=== PATIENT | female | born 1935 | race Caucasian/White ===

== ENCOUNTER 2016-04-16 08:24 | Day surgery (SDC) | payer OTHER, BC ==
[~2016-04-16] VITALS: Ht 167.6 cm; Wt 77.1 kg
[~2016-04-16 08:24] MED LIST: ACIDOPHILUS LA1 EAC1 PO; AMLODIPINE BESY10 MG PO; AMLODIPINE BESYL5 MG PO; BENZONATATE100 MG PO; CINNABETIC1 CAPSUL1 PO; CINNAMON500 MG PO; CLOPIDOGREL75 MG PO; Cinnamon Bark PO; ECOTRIN325 MG PO; EFFEXOR XR75 MG PO; Ecotrin PO; FISH OIL 1,0001 EAC7 PO; FISH OIL 1,4001 EACH PO; FISH OIL300 MG PO; GABAPENTIN100 MG PO; HYZAAR 100-21 TABLET PO; Hyzaar 100-25 PO; INDERAL20 MG PO; LEVOFLOXACIN750 MG PO; LO-DOSE ASPIRIN81 M2 PO; LORCET 5-325 M1 EACH PO; NAPROSYN250 MG PO; NORVASC5 MG PO; Norvasc PO; ONE DAILY MULT1 EAC1 PO; PREVACID30 MG PO; PROBIOTIC & AC1 EACH PO; PROBIOTIC1 EAC2 PO; PROBIOTIC1 EAC6 PO; PROBIOTIC1 EACH PO; PROTONIX40 MG PO; Pravachol PO; Protonix PO; TAMIFLU30 MG PO; TYLENOL WITH C1 EACH PO; VENLAFAXINE HCL75 M3 PO; VITAMIN B-COMP1 EAC2 PO; VYTORIN 10/21 TABLET PO; VYTORIN 10/41 TABLET PO; Zetia PO
== END 2016-04-16 10:39 | disposition home or self-care (01) ==
LOC: PAIN 08:24 → SDC 09:00 → PAIN 10:39
PROC: 01513ZZ Destruction of Cervical Nerve, Percutaneous Approach (ICD-10-PCS; principal; 2016-04-16)
DX: M47.892 Other spondylosis, cervical region (principal); M54.12 Radiculopathy, cervical region; E78.5 Hyperlipidemia, unspecified; I10 Essential (primary) hypertension; K21.9 Gastro-esophageal reflux disease without esophagitis; F41.1 Generalized anxiety disorder; E11.40 Type 2 diabetes mellitus with diabetic neuropathy, unspecified
CPT/HCPCS: J1030; J3010; S0020

== ENCOUNTER 2016-11-25 20:12 | Inpatient (IN) | payer OTHER, BC ==
[~2016-11-25] VITALS: Ht 162.6 cm; Wt 84.8 kg
[2016-11-25 20:40] LABS: HEMATOCRIT 42.8 % (36.0-46.0); MCH 29.1 PG (29.0-34.0); MCHC 33.4 G/DL (30.0-36.0); MEAN PLAT.VOLUME 10.5 uM^3 (9.5-12.4); PLATELET COUNT 205 K/uL (156-360); RBC DIS.WIDTH-CV 12.5 % (11.8-14.6); RBC DIS.WIDTH-SD 39.8 % (39-53); RED BLOOD COUNT 4.92 M/uL (3.80-5.20); WHITE BLOOD COUNT 8.6 K/uL (4.1-10.2)
[2016-11-25 20:49] LABS: AMYLASE 61 IU/L (1-118); CHLORIDE 100 mEq/L (99-109); INTER. NORMALIZED RATIO 0.9; POTASSIUM 3.6 mEq/L (3.7-5.4); SODIUM 140 mEq/L (136-147)
[2016-11-25 20:50] LABS: GLUCOSE 115 mg/dL (70-99)
[2016-11-25 20:51] LABS: PTT 28.4 SEC (25-37)
[2016-11-25 20:52] LABS: ANION GAP 14 MEQ/L (2-14)
[2016-11-25 20:53] LABS: PROTHROMBIN TIME 9.4 SEC (10.2-12.9)
[2016-11-25 20:54] LABS: GFR ESTIMATE (CALCULATED) > 59 mL/min/
[2016-11-25 20:55] LABS: UREA NITROGEN (BUN) 18 mg/dL (9-23)
[2016-11-25 20:57] LABS: LIPASE 17 U/L (1.0-51.0)
[2016-11-25 21:01] LABS: TROP-I INTERPRETATION NEGATIVE; TROPONIN-I 0.01 ng/mL (0.0-0.30)
[2016-11-25 23:48] LABS: HDL CHOLESTEROL 45 MG/DL (Desirable>=50); LDL CHOLESTEROL 85 mg/dL (Desirable<100); NON-HDL CHOLESTEROL 127 mg/dL (Desirable<160); SAMPLE HEMOLYSIS CHECK 0; SAMPLE ICTERIC CHECK 0; SAMPLE LIPEMIA CHECK 0; TOTAL CHOLESTEROL 172 mg/dL (Desirable<200); TRIGLYCERIDES 210 MG/DL (Normal: <150)
[2016-11-25] MEDS ORDERED: TYLENOL WITH C1 EACH PO (23:50)
[2016-11-26 00:44] VITALS: BP 166/74
[2016-11-26 06:16] LABS: HEMATOCRIT 35.1 % (36.0-46.0); MCH 29.1 PG (29.0-34.0); MCHC 33.3 G/DL (30.0-36.0); MCV 87.3 FL (83-99); RBC DIS.WIDTH-CV 12.4 % (11.8-14.6); RED BLOOD COUNT 4.02 M/uL (3.80-5.20); WHITE BLOOD COUNT 7.5 K/uL (4.1-10.2)
[2016-11-26 06:17] LABS: MEAN PLAT.VOLUME 10.8 uM^3 (9.5-12.4); PLATELET COUNT 164 K/uL (156-360)
[2016-11-26 06:38] LABS: ALKALINE PHOSPHATASE 52 IU/L (3-129); ANION GAP 7 MEQ/L (2-14); CHLORIDE 106 MEQ/L (99-109); GFR ESTIMATE (CALCULATED) > 59 mL/min/; GLUCOSE 94 mg/dL (70-99); POTASSIUM 3.8 MEQ/L (3.7-5.4); SAMPLE HEMOLYSIS CHECK 0; SAMPLE ICTERIC CHECK 0; SAMPLE LIPEMIA CHECK 0; SODIUM 143 MEQ/L (136-147); TOTAL BILIRUBIN 0.6 MG/DL (0.0-1.0); UREA NITROGEN (BUN) 15 mg/dL (9-23)
[2016-11-26 07:09] LABS: Estimated Average Glucose 120 mg/dL (70-123); HEMOGLOBIN A1c (GLYCOHEMOGLOB) 5.8 % HGB (Below 5.7)
[2016-11-26 07:50] VITALS: BP 136/65
[2016-11-26 11:21] VITALS: BP 133/62
[2016-11-26 15:15] VITALS: BP 149/70
[2016-11-26 20:01] VITALS: BP 140/68
[2016-11-27 00:02] VITALS: BP 140/67
[2016-11-27 03:35] VITALS: BP 124/58
[2016-11-27 06:54] LABS: BASOPHIL COUNT 0.1 K/uL (0-0.1); EOSINOPHIL (%) 5.3 % (0-5); EOSINOPHIL COUNT 0.3 K/uL (0-0.3); HEMATOCRIT 36.9 % (36.0-46.0); IMMATURE GRANULOCYTE (%) 0.2 % (0.0-0.7); INSTRUMENT ABS NEUTROPHIL CT 2.7 K/uL; LYMPHOCYTE COUNT 1.9 K/uL (1.0-2.8); MCH 29.5 PG (29.0-34.0); MCHC 33.6 G/DL (30.0-36.0); MCV 87.9 FL (83-99); MEAN PLAT.VOLUME 10.5 uM^3 (9.5-12.4); MONOCYTE (%) 14.3 % (3-12); MONOCYTE COUNT 0.8 K/uL (0-0.8); NEUTROPHIL (%) 47.1 % (45-76); NEUTROPHIL COUNT 2.7 K/uL (1.8-6.4); PLATELET COUNT 170 K/uL (156-360); RBC DIS.WIDTH-CV 12.5 % (11.8-14.6); RBC DIS.WIDTH-SD 40.2 % (39-53); WHITE BLOOD COUNT 5.8 K/uL (4.1-10.2)
[2016-11-27 07:21] LABS: ANION GAP 7 MEQ/L (2-14); CHLORIDE 104 MEQ/L (99-109); GFR ESTIMATE (CALCULATED) > 59 mL/min/; GLUCOSE 99 mg/dL (70-99); POTASSIUM 3.7 MEQ/L (3.7-5.4); SAMPLE HEMOLYSIS CHECK 0; SAMPLE ICTERIC CHECK 0; SAMPLE LIPEMIA CHECK 0; SODIUM 143 MEQ/L (136-147); UREA NITROGEN (BUN) 13 mg/dL (9-23)
[2016-11-27 07:47] VITALS: BP 124/62
[2016-11-27 11:44] VITALS: BP 150/59
[2016-11-27] MEDS ORDERED: CLOPIDOGREL75 MG PO (13:19)
[2016-11-27] MEDS ORDERED: EZETIMIBE10 MG PO (13:19)
[2016-11-27] MEDS ORDERED: NAPROSYN250 MG PO (13:20)
[2016-11-27] MEDS ORDERED: PRAVASTATIN SOD40 MG PO (13:20)
[2016-11-27] MEDS ORDERED: GABAPENTIN100 MG PO (13:21)
== END 2016-11-27 15:09 | disposition home or self-care (01) | DRG 66 ==
LOC: EME 20:12 → EDOF 22:10 → 5SOUTH 22:10 → ENRESERV 22:12 → 5SOUTH 11-26 00:28 → ENPENDDIS 11-27 → 5SOUTH 11-27 15:09
PROVIDERS: Internal Medicine
DX: I63.9 Cerebral infarction, unspecified (principal); E87.6 Hypokalemia; E78.00 Pure hypercholesterolemia, unspecified; I10 Essential (primary) hypertension; I25.10 Atherosclerotic heart disease of native coronary artery without angina pectoris; E78.5 Hyperlipidemia, unspecified; F32.9 Major depressive disorder, single episode, unspecified; G43.909 Migraine, unspecified, not intractable, without status migrainosus; I25.2 Old myocardial infarction; K21.9 Gastro-esophageal reflux disease without esophagitis; R29.702 NIHSS score 2; M48.02 Spinal stenosis, cervical region; R29.810 Facial weakness; E66.9 Obesity, unspecified; Z68.32 Body mass index [BMI] 32.0-32.9, adult; M50.30 Other cervical disc degeneration, unspecified cervical region; Z95.1 Presence of aortocoronary bypass graft; Z95.2 Presence of prosthetic heart valve; R47.1 Dysarthria and anarthria
CPT/HCPCS: 70450; 70496; 70498; 70551; 71010; 80048; 80053; 80061; 82150; 83036; 83690; 84484; 85025; 85027; 85610; 85730; 92610 GN; 93005; 93306; 99281; 99285; J1644; J3480; S0028

== ENCOUNTER 2017-04-28 07:54 | Observation (INO) | payer OTHER, BC ==
[~2017-04-28] VITALS: Ht 170.2 cm; Wt 77.7 kg
[~2017-04-28 07:54] MED LIST changes: +EZETIMIBE10 MG PO; +PRAVASTATIN SOD40 MG PO
[2017-04-28 08:59] LABS: BASOPHIL (%) 0.9 % (0-1); BASOPHIL COUNT 0.1 K/uL (0-0.1); EOSINOPHIL (%) 5.4 % (0-5); EOSINOPHIL COUNT 0.4 K/uL (0-0.3); HEMATOCRIT 39.7 % (36.0-46.0); HEMOGLOBIN 13.4 G/DL (11.9-15.5); IMMATURE GRANULOCYTE (%) 0.3 % (0.0-0.7); LYMPHOCYTE (%) 24.2 % (15-42); LYMPHOCYTE COUNT 1.6 K/uL (1.0-2.8); MCH 29.5 PG (29.0-34.0); MCHC 33.8 G/DL (30.0-36.0); MCV 87.4 FL (83-99); MONOCYTE (%) 13.1 % (3-12); MONOCYTE COUNT 0.9 K/uL (0-0.8); NEUTROPHIL (%) 56.1 % (45-76); NEUTROPHIL COUNT 3.8 K/uL (1.8-6.4); PLATELET COUNT 213 K/uL (156-360); RBC DIS.WIDTH-CV 12.2 % (11.8-14.6); RBC DIS.WIDTH-SD 39.1 % (39-53); RED BLOOD COUNT 4.54 M/uL (3.80-5.20); WHITE BLOOD COUNT 6.7 K/uL (4.1-10.2)
[2017-04-28 09:04] LABS: INTER. NORMALIZED RATIO 0.9
[2017-04-28 09:19] LABS: CHLORIDE 104 mEq/L (99-109); POTASSIUM 3.7 mEq/L (3.7-5.4); SODIUM 142 mEq/L (136-147)
[2017-04-28 09:21] LABS: GLUCOSE 106 mg/dL (70-99)
[2017-04-28 09:25] LABS: CREATININE 0.8 mg/dL (0.6-1.3); GFR ESTIMATE (CALCULATED) > 59 mL/min/; UREA NITROGEN (BUN) 18 mg/dL (9-23)
[2017-04-28 09:33] LABS: TROP-I INTERPRETATION NEGATIVE; TROPONIN-I < 0.01 ng/mL (0.0-0.30)
[2017-04-28 13:07] LABS: HDL CHOLESTEROL 45 MG/DL (Desirable>=50); LDL CHOLESTEROL 100 mg/dL (Desirable<100); NON-HDL CHOLESTEROL 123 mg/dL (Desirable<160); TOTAL CHOLESTEROL 168 mg/dL (Desirable<200); TRIGLYCERIDES 115 MG/DL (Normal: <150)
[2017-04-28 13:27] LABS: HEMOGLOBIN A1c (GLYCOHEMOGLOB) 5.8 % (Below 5.7)
[2017-04-28 20:12] VITALS: BP 124/77
[2017-04-28 23:37] VITALS: BP 114/55
[2017-04-29 03:36] VITALS: BP 165/67
[2017-04-29 07:34] VITALS: BP 126/59
[2017-04-29 12:04] VITALS: BP 175/73
== END 2017-04-29 16:20 | disposition home or self-care (01) ==
LOC: EME 07:54 → EDOF 10:58 → 5SOUTH 10:58 → ENRESERV 10:59 → 5SOUTH 19:56
PROVIDERS: Emergency Medicine; Hospitalist
DX: H53.2 Diplopia (principal); R51 Headache; I10 Essential (primary) hypertension; I25.10 Atherosclerotic heart disease of native coronary artery without angina pectoris; Z95.1 Presence of aortocoronary bypass graft; I35.0 Nonrheumatic aortic (valve) stenosis; E78.5 Hyperlipidemia, unspecified; K21.9 Gastro-esophageal reflux disease without esophagitis; Z86.73 Personal history of transient ischemic attack (TIA), and cerebral infarction without residual deficits; Z95.3 Presence of xenogenic heart valve; Z79.82 Long term (current) use of aspirin; Z79.02 Long term (current) use of antithrombotics/antiplatelets
CPT/HCPCS: 70450; 70551; 71045; 80048; 80061; 83036; 84484; 85025; 85610; 85730; 92610 GN; 93005; 93306; 99281; 99285; G0378; G8987 GO CI; G8988 GO CH; G8989 GO CI; G8996 GN CH; G8997 GN CH; G8998 GN CH; J1650